=== PATIENT | male | born 1980 | race Two or more races ===

== ENCOUNTER 2021-07-11 19:49 | Inpatient (IN) | payer OTHER ==
[~2021-07-11] VITALS: Ht 165.1 cm; Wt 74.4 kg
--- NOTE | 2021-07-11 20:23 | NUR ---
patient back from CT
[2021-07-11 20:27] LABS: BASOPHILS % (AUTO) 0.3 % (0.0-2.0); EOSINOPHILS % (AUTO) 1.1 % (0.0-6.0); HEMATOCRIT 21 % (39-51); HEMOGLOBIN 7.3 g/dL (13.5-17.5); LYMPHOCYTES # (AUTO) 4.7 K/uL (0.8-4.8); MEAN CORPUSCULAR HGB CONC 34 g/dl (31.0-36.0); MEAN CORPUSCULAR VOLUME 90 fL (80-96); MONOCYTES # (AUTO) 1.2 K/uL (0.1-1.30); MONOCYTES % (AUTO) 6.2 % (2.0-12.0); NEUTROPHILS # (AUTO) 13.5 K/uL (1.8-8.9); NEUTROPHILS % (AUTO) 68.4 % (43.0-81.0); PLATELET COUNT (AUTO) 248 K/uL (150-450); RED BLOOD CELL COUNT(AUTO) 2.37 MIL/uL (4.5-6.0); WHITE BLOOD COUNT (AUTO) 19.7 K/uL (4.3-11.0)
[2021-07-11] MEDS ORDERED: MORPHINE SULFATE INJ 2 MG/ML DISP.SYRIN IV ONE (20:30)
[2021-07-11] MEDS ORDERED: ONDANSETRON HCL/PF 4 MG/2 ML VIAL IVP ONE (20:30)
[2021-07-11] MEDS ORDERED: IV NS 0.9% 1,000 ML BAG IV ONE (20:30)
[2021-07-11] MEDS ORDERED: ONDANSETRON HCL/PF 4 MG/2 ML VIAL ONE (20:32)
[2021-07-11 20:33] LABS: CALCIUM, SERUM 8.1 mg/dL (8.5-10.1); CREATININE 1.2 mg/dL (0.6-1.3); POTASSIUM 3.3 mmol/L (3.5-5.1)
[2021-07-11 20:38] LABS: ALBUMIN 3.1 g/dL (3.4-5.0); BILIRUBIN,TOTAL 0.1 mg/dL (0.2-1.0); TOTAL PROTEIN, SERUM 5.9 g/dL (6.4-8.2)
--- NOTE | 2021-07-11 20:46 | NUR ---
JAVID MONAEP FOR PANEL
[2021-07-11] MEDS ORDERED: PIPERACILLIN /TAZOBACTAM 3.375 G VIAL IV ONE (20:54)
[2021-07-11] MEDS ORDERED: PIPERACILLIN /TAZOBACTAM 3.375 G in IV D5W 50 ML IV ONE (21:00)
[2021-07-11] MEDS ORDERED: IV PREMIX D5 1/2NS + KCL 1,000 ML IV ONE ×2 (21:00→21:52)
--- NOTE | 2021-07-11 21:05 | NUR ---
PATIENT BIBSELF C/O DIARRHEA X 3 DAYS, SYNCOPE TODAY X COUPLE SECONDS AT HOME. -TRAUMA. PATIENT TAKEN TO ER BED 03. PATIENT IS A/O X 4 RR AND UNLABORED, NO SOB NOTED. PATIENT CONNECTED TO THORACIC SURGEON AND POX. WILL CONTINUE TO MONITOR.
[2021-07-11] MEDS ORDERED: HYDROMORPHONE INJ 2 MG/ML DISP.SYRIN IV PRN (21:30)
[2021-07-11] MEDS ORDERED: MAGNESIUM HYDROXIDE 30 ML UDC PO PRN (21:30)
[2021-07-11] MEDS ORDERED: ONDANSETRON HCL/PF 4 MG/2 ML VIAL IVP PRN (21:30)
[2021-07-11] MEDS ORDERED: MAG HYDROX/AL HYDROX/SIMETH 30 ML UDC PO PRN (21:30)
[2021-07-11] MEDS ORDERED: ZOLPIDEM TARTRATE 5 MG TABLET PO PRN (21:30)
[2021-07-11] MEDS ORDERED: ACETAMINOPHEN 325 MG TABLET PO PRN (21:30)
[2021-07-11] MEDS ORDERED: Z GUARD REMEDY 4 OZ OINT TP PRN (21:30)
[2021-07-11 23:00] VITALS: BP 127/68
--- NOTE | 2021-07-11 23:00 | NUR ---
RN RECEIVING TRANSFER NOTE PATIENT RECEIVED FROM ER ACCOMPANIED BY RNKAREEM. PATIENT TRANSPORTED BY GURNEY TO UNIT 3W. PATIENT WAS ABLE TO AMBULATE TO BED. A/OX4. NO S/S OF DISTRESS, BREATHING ON RM AIR W/O DIFFICULTY. RAC #20 INTACT AND PATENT W/ D5-1/2 NS + KCL 200ML/HR (REPLACING LOW POTASSIUM OF 3.3). VS WNL. PATIENT'S BELONGINGS WERE ACCOUNTED FOR AND SHEET LOGGED INTO CHART. PATIENT WAS ORIENTED TO THE UNIT, GIVEN CALL WILKS AND INSTRUCTED ON ITS USE. SAFETY MEASURES IN PLACE: BED AT LOWEST POSITION, LOCKED, RAILS UP X3, CALL WILKS WITHIN REACH. WILL CONTINUE TO MONITOR PATIENT.
--- NOTE | 2021-07-11 23:08 | NUR ---
PATIENT TRANSFERRED UNDER ACLS.
[2021-07-12] VITALS (7 sets, daily range): BP systolic 107–124; BP diastolic 57–72
[2021-07-12] MEDS ORDERED: LORAZEPAM INJ 2 MG/ML VIAL IV ONE
[2021-07-12] MEDS ORDERED: PIPERACILLIN /TAZOBACTAM 3.375 G VIAL IV ONE ×2 (00:30→05:03)
[2021-07-12] MEDS: PIPERACILLIN /TAZOBACTAM 3.375 G in IV D5W 50 ML IV SCH ×5 (00:37→23:57)
[2021-07-12] MEDS: IV NS 0.9% 1,000 ML IV PRN (05:08)
[2021-07-12 06:30] LABS: BASOPHILS % (AUTO) 0.2 % (0.0-2.0); EOSINOPHILS % (AUTO) 0.4 % (0.0-6.0); LYMPHOCYTES # (AUTO) 3.3 K/uL (0.8-4.8); MEAN CORPUSCULAR HGB CONC 35 g/dl (31.0-36.0); MEAN CORPUSCULAR VOLUME 90 fL (80-96); MONOCYTES % (AUTO) 8.9 % (2.0-12.0); NEUTROPHILS # (AUTO) 6.6 K/uL (1.8-8.9); NEUTROPHILS % (AUTO) 60.5 % (43.0-81.0); PLATELET COUNT (AUTO) 205 K/uL (150-450); WHITE BLOOD COUNT (AUTO) 10.9 K/uL (4.3-11.0)
[2021-07-12 06:31] LABS: ALBUMIN 2.8 g/dL (3.4-5.0); BILIRUBIN,TOTAL 0.2 mg/dL (0.2-1.0); CALCIUM, SERUM 7.6 mg/dL (8.5-10.1); CREATININE 1.2 mg/dL (0.6-1.3); MAGNESIUM 2.1 mg/dL (1.8-2.4); POTASSIUM 3.6 mmol/L (3.5-5.1); TOTAL PROTEIN, SERUM 5.3 g/dL (6.4-8.2)
[2021-07-12 06:39] LABS: RED BLOOD CELL COUNT(AUTO) 1.89 MIL/uL (4.5-6.0)
[2021-07-12 06:42] LABS: HEMATOCRIT 17 % (39-51)
--- NOTE | 2021-07-12 07:00 | NUR ---
RN NOTE LAB CONTACTED RN W/ CRITICAL VALUE OF H/H (6.0/17). THIS IS A DECREASE FROM THE INITIAL 7.3 HGB. DISCUSSED W/ CHARGE NURSE, SEBASTIAN. PATIENT IS ALREADY ADMITTED W/ A DIAGNOSIS OF GI BLEED WELL THE MD ORDERS ALREADY HAVE A PENDING PRBC TRANSFUSION PENDING, CHARGE NURSE STATED NO NEED TO NOTIFY MD. PATIENT STABLE; WILL CONTINUE TO MONITOR. Addendum: 07/12/21 at 0805 by BERNIE CALABRESE RN SPOKE W/ ANA FROM LAB.
--- NOTE | 2021-07-12 07:00 | NUR ---
RN NOTE PATIENT'S PARTNER, DASH, CALLED TO INQUIRE ABOUT PATIENT'S CURRENT HEALTH STATUS. PATIENT AND PARTNER INFORMATION VERIFIED BEFORE PROCEEDING TO DISCUSS PATIENT'S HEALTH INFORMATION. ALL QUESTIONS ANSWERED. PATIENT STABLE; WILL CONTINUE TO MONITOR PATIENT.
--- NOTE | 2021-07-12 07:30 | NUR ---
MS RN OPENING NOTES RECEIVED PATIENT AWAKE ON BED, PATIENT IS ALERT, A/O x 4. ROOM AIR TOLERATING WELL. NO S/S OF SOB NOTED, AND PATIENT IS NOT IN DISTRESS. NO PAIN AND DISCOMFORT AT THIS TIME. WITH IV ACCESS: RIGHT AC 20G WITH NS 90 ML/HR; CLEAN, DRY AND INTACT. INFUSING WELL. SAFETY MEASURES IN PLACE, BED LOWEST LOCK IN POSITION, SIDE RAILS UP BY 2. CALL LIGHT WITH IN REACH AND WILL CONTINUE TO MONITOR FOR HAJA.
--- NOTE | 2021-07-12 07:37 | NUR ---
RN CLOSING NOTE PATIENT AWAKE IN BED. A/OX4. NO S/S OF DISTRESS, BREATHING WELL ON RM AIR. RAC #20 W/ NS 90ML/HR. LAB NOTIFIED UNIT THAT PRBC TRANSFUSION IS READY AT SHIFT CHANGE; ENDORSED TO DAY SHIFT NURSE. SAFETY MEASURES IN PLACE: BED AT LOWEST POSITION, LOCKED, RAILS UP X3, CALL WILKS WITHIN REACH. REPORT GIVEN TO RUSH WHO ACKNOWLEDGED REPORT.
--- NOTE | 2021-07-12 08:30 | NUR ---
SEVEN MS NOTES PT STATED THAT HE WANTS TO SMOKE, REMINDED PT THAT HE HAS TO HAVE SOMEBODY WITH HIM AT THE SMOKING AREA, PT SAID HE DOESN'T CARE AND WENT STRAIGHT TO THE ELEVATOR RIGHT AWAY, ACCOMPANIED PT TO SMOKE AT THE SMOKING AREA AND WENT BACK TO HIS ROOM AFTER 5 MIN. Addendum: 07/12/21 at 1045 by RUSH WATT RN PLS DISREGARD ABOVE NOTES, INTENDED FOR ANOTHER PT.
[2021-07-12] MEDS ORDERED: FEXO-65 PO (08:57)
--- NOTE | 2021-07-12 13:02 | NUR ---
MS RN NOTES PATIENT RECEIVED 306 ML OF BLOOD TRANSFUSION. PATIENT TOLERATED IT WELL; NO SIGNS AND SYMPTOMS OF ADVERSE EFFECT FROM THE BLOOD. VITAL SIGNS ARE WITHIN NORMAL LIMITS.
[2021-07-12] MEDS: PANTOPRAZOLE 40 MG VIAL IV SCH ×3 (13:08→21:18)
--- NOTE | 2021-07-12 17:51 | NUR ---
RN MS NOTES REPEAT H/H DONE, RESULTS RELAYED TO DR. HARRIS, 7., PT IS ASYMPTOMATIC, NO ACTIVE BLEEDING, NO COMPLAINT OF PAIN, NO NAUSEA OR VOMITING, STATED THAT HE FEELS A BIT BETTER, NO NEW ORDER GIVEN, WILL REPEAT LABS IN AM, PT INFORMED, VERBALIZED UNDERSTANDING.
--- NOTE | 2021-07-12 18:38 | NUR ---
MS RN CLOSING NOTES PATIENT AWAKE ON BED, PATIENT IS ALERT, A/O x 4. ROOM AIR TOLERATING WELL. NO S/S OF SOB NOTED, AND PATIENT IS NOT IN DISTRESS. NO PAIN AND DISCOMFORT AT THIS TIME. WITH IV ACCESS: LEFT AC 20G WITH NS 90 ML/HR; CLEAN, DRY AND INTACT. INFUSING WELL. SAFETY MEASURES IN PLACE, BED LOWEST LOCK IN POSITION, SIDE RAILS UP BY 2. CALL LIGHT WITH IN REACH. WILL ENDORSE TO ONCOMING SHIFT FOR HAJA.
--- NOTE | 2021-07-12 20:00 | NUR ---
MS RN NOTES RECEIVED ON BED A/O X4,BREATHING REGULAR,NOT IN ANY FORM OF DISTRESS,PRESENT IVF INFUSING WELL ON LEFT AC SALINE LOCK VIA IV PUMP.SALINE LOCK RIGHT AC INTACT AND PATENT.DENIES PAIN DISCOMFORTS.NPO STATUS,CALL LIGHT IN REACH,NEEDS ANTICIPATED.
[2021-07-13] MEDS: IV NS 0.9% 1,000 ML IV PRN (00:19)
--- NOTE | 2021-07-13 01:00 | NUR ---
MS RN NOTES C/O HEADACHE,NPO STATUS.ICE PACK TO FOREHEAD PER PATIENT REQUEST.
--- NOTE | 2021-07-13 03:00 | NUR ---
MS RN NOTES ASLEEP.KEPT WARM AND COMFORTABLE.
[2021-07-13] MEDS: PIPERACILLIN /TAZOBACTAM 3.375 G in IV D5W 50 ML IV SCH ×4 (05:38→23:28)
[2021-07-13 05:59] LABS: CALCIUM, SERUM 8.1 mg/dL (8.5-10.1); CREATININE 1.2 mg/dL (0.6-1.3); MAGNESIUM 2.1 mg/dL (1.8-2.4); PHOSPHORUS 3.7 mg/dL (2.5-4.9); POTASSIUM 3.8 mmol/L (3.5-5.1)
--- NOTE | 2021-07-13 06:34 | NUR ---
MS RN NOTES ON BED SLEEPING,IV ABX INFUSED,NO ADVERSE SIDE EFFECTS NOTED,NO ACTIVE BLEEDING NOTED,NO N/V/D NOTED.STILL NEED STOOL FOR OCCULT BLOOD,KEPT NPO ORDERED.CALL LIGHT IN REACH,NEEDS ATTENDED.
[2021-07-13 06:37] LABS: BASOPHILS % (AUTO) 0.4 % (0.0-2.0); EOSINOPHILS % (AUTO) 0.8 % (0.0-6.0); HEMATOCRIT 21 % (39-51); HEMOGLOBIN 7.1 g/dL (13.5-17.5); LYMPHOCYTES # (AUTO) 3.6 K/uL (0.8-4.8); LYMPHOCYTES % (AUTO) 37.6 % (20.0-44.0); MEAN CORPUSCULAR HGB CONC 35 g/dl (31.0-36.0); MEAN CORPUSCULAR VOLUME 90 fL (80-96); MONOCYTES # (AUTO) 0.8 K/uL (0.1-1.30); MONOCYTES % (AUTO) 7.9 % (2.0-12.0); NEUTROPHILS # (AUTO) 5.2 K/uL (1.8-8.9); NEUTROPHILS % (AUTO) 53.3 % (43.0-81.0); PLATELET COUNT (AUTO) 225 K/uL (150-450); RED BLOOD CELL COUNT(AUTO) 2.29 MIL/uL (4.5-6.0); WHITE BLOOD COUNT (AUTO) 9.7 K/uL (4.3-11.0)
[2021-07-13 08:00] VITALS: BP 110/63
--- NOTE | 2021-07-13 08:10 | NUR ---
RN OPENING NOTE PATIENT RECEIVED IN BED, AO X 4, ABLE TO RESPONDS ALL STIMULI. IN NO ACUTE DISTRESS NOTED. RESPIRATORY EVEN AND UNLABORED ON ROOM. KEPT NPO FOR POSSIBLE EGD BY DR. MUJICA. SKIN IS WARM TO TOUCH, KEEP CLEAN/DRY, INTACT IV SITE. KEPT ELEVATED HOB FOR ENSURE AIRWAY AND ASPIRATION PRECAUTION, ALSO LOWEST POSITION OF THE BED, S/R UP X 3, ALL SAFETY PRECAUTION APPLIED. CALL LIGHT WITHIN REACH, WILL CONTINUE TO MONITOR.
--- NOTE | 2021-07-13 08:24 | NUR ---
PATIENT GOING PROCEDURE EGD, OBTAINED SIGN OF CONSENT.
[2021-07-13] MEDS ORDERED: ANESTHESIA TRAY IN PYXIS 1 EA TRAY MC ONE (09:26)
[2021-07-13 10:46] VITALS: BP 120/59
--- NOTE | 2021-07-13 10:54 | NUR ---
PATIENT CAME BACK FROM EGD IN STABLE CONDITION, REPORTED BY ROMARIO/OR. VITAL SIGN IS STABLE(DOCUMENTED AT IN INTERVENTION). WILL CONTINUE TO MONITOR.
--- NOTE | 2021-07-13 11:16 | NUR ---
PATIENT NOTICED SHAKING THE HIS BODY, DENIES DISTRESS. DR. HARRIS MADE AWARE AND NEW ORDER ATIVAN 1MG VIA IV Q4 HOURS.
[2021-07-13] MEDS ORDERED: LORAZEPAM INJ 2 MG/ML VIAL IV PRN (11:30)
[2021-07-13] MEDS: PANTOPRAZOLE 40 MG VIAL IV SCH ×2 (11:41→20:01)
[2021-07-13 11:45] VITALS: BP 136/77
[2021-07-13 16:00] VITALS: BP 120/60
--- NOTE | 2021-07-13 18:24 | NUR ---
RN CLOSE NOTE PATIENT IN BED, S/P EGD, IN NO ACUTE DISTRESS OBSERVED. RESPIRATION EVEN AND UNLABORED ON ROOM AIR. SKIN IS WARM TO TOUCH KEEP CLEAN//DRY, INTACT IV SITE. HAD BOWEL MOVEMENT AND COLLECTED OB STOOL. KEPT ELEVATED HOB FOR ENSURE AIRWAY AND ASPIRATION PRECAUTION. ALSO LOWEST POSITION OF THE BED FOR SAFETY. CALL LIGHT WITHIN REACH, WILL ENDORSE TO STRUCTURAL STEEL PAINTER.
[2021-07-13 18:33] LABS: OCCULT BLOOD STOOL POSITIVE (NEGATIVE)
--- NOTE | 2021-07-13 19:30 | NUR ---
MS RN NOTES RECEIVED ON BED SLEEPING AROUSABLE TO VERBAL STIMULI,BREATHING REGULAR,O2 SAT 98% ON ROOM AIR,VISITOR AT BEDSIDE,PRESENT IVF NS AT 90ML/HR RATE INFUSING WELL ON LEFT AC SALINE LOCK VIA IV PUMP.DENIES PAIN AT THE MOMENT,COMMENTED TOLERATED CLEAR LIQUID DIET,STOOL OB POSITIVE FOR OCCULT BLOOD.S/P EGD THIS MORNING,FIND OUT DUODENAL ULCER,CLIPS X2 WAS DONE AND BIOPSY ALSO WAS DONE.WILL CONTINUE TO MONITOR FOR ACTIVE BLEEDING,CALL LIGHT IN REACH,NEEDS ANTICIPATED.
[2021-07-13 20:00] VITALS: BP 129/55
[2021-07-14 05:59] LABS: CREATININE 1.2 mg/dL (0.6-1.3); MAGNESIUM 2.1 mg/dL (1.8-2.4); PHOSPHORUS 3.6 mg/dL (2.5-4.9); POTASSIUM 3.4 mmol/L (3.5-5.1)
[2021-07-14] MEDS: PIPERACILLIN /TAZOBACTAM 3.375 G in IV D5W 50 ML IV SCH ×4 (06:07→23:05)
[2021-07-14 06:28] LABS: BASOPHILS % (AUTO) 0.4 % (0.0-2.0); EOSINOPHILS % (AUTO) 0.6 % (0.0-6.0); LYMPHOCYTES # (AUTO) 1.7 K/uL (0.8-4.8); MEAN CORPUSCULAR HGB CONC 35 g/dl (31.0-36.0); MEAN CORPUSCULAR VOLUME 91 fL (80-96); MONOCYTES # (AUTO) 0.7 K/uL (0.1-1.30); MONOCYTES % (AUTO) 10.4 % (2.0-12.0); NEUTROPHILS # (AUTO) 4.1 K/uL (1.8-8.9); NEUTROPHILS % (AUTO) 62.6 % (43.0-81.0); PLATELET COUNT (AUTO) 251 K/uL (150-450); RED BLOOD CELL COUNT(AUTO) 2.09 MIL/uL (4.5-6.0); WHITE BLOOD COUNT (AUTO) 6.6 K/uL (4.3-11.0)
[2021-07-14 06:54] LABS: HEMOGLOBIN 6.6 g/dL (13.5-17.5)
[2021-07-14 06:55] LABS: HEMATOCRIT 19 % (39-51)
--- NOTE | 2021-07-14 07:29 | NUR ---
MS RN NOTES FAIRLY RESTED AT NIGHT,NO COMPLAINTS OF PAIN,AFEBRILE,IVF INFUSING WELL ON RIGHT AC SALINE LOCK.POSSIBLE D/C, TO BE CATEGORY MANAGER BY PARTNER IN THE AFTERNOON BETWEEN 3-4 PM.IN NO ACUTE DISTRESS.
--- NOTE | 2021-07-14 07:30 | NUR ---
RN OPENING NOTES RECEIVED PATIENT IN BED, A/O X4. ON RA WITH NO S/SX OF RESP DISTRESS. S/P EGD. RAC AND LAC G#18 INTACT AND PATENT. PATIENT ON NS @ 90ML/HR. SAFETY MEASURES IN PLACE. WILL CONTINUE PLAN OF CARE AND MONITOR FOR BLEEDING.
[2021-07-14 08:26] VITALS: BP 116/55
[2021-07-14] MEDS: PANTOPRAZOLE 40 MG VIAL IV SCH ×2 (09:15→20:48)
[2021-07-14] MEDS: IV NS 0.9% 1,000 ML IV PRN (09:37)
[2021-07-14] MEDS ORDERED: POTASSIUM CHLORIDE 20 MEQ POWDER PACKET PO SCH (10:00)
[2021-07-14 14:15] VITALS: BP 127/74
[2021-07-14 14:38] VITALS: BP 112/62
[2021-07-14 16:15] VITALS: BP 122/68
[2021-07-14 17:35] VITALS: BP 122/68
--- NOTE | 2021-07-14 19:00 | NUR ---
RN NOTES: RECIEVED AWAKE ON BED, VISITOR PRESENT AT BED SIDE, A/OX 4, PLEASANT MOOD, CONVERSANT, ABLE TO MAKE NEEDS KNOWN,HE VERBALIZED HE FEEL BETTER DURING THE ROUNDS, IV CANNULA ON RAC#18 WITH NS AT 90 CC/HR ON GOING, SPO2-99% ROOM AIR, NO SIGN OF SOB, NO PAIN OR DISCOMFORT, RECIEVED 1 UNIT PRBC IN THE MORNING COMPLETED AT AROUND 540PM. PER ENDORSEMENT NEEDS TO CHECK H/H POST TRANSFUSION, TO VERIFY WITH LAB.
--- NOTE | 2021-07-14 19:15 | NUR ---
RN CLOSING NOTES PATIENT IN BED AWAKE. ALL ORDERS FOLLOWED AND MEDICATIONS GIVEN TODAY. SAFETY MEASURES IN PLACE. ENDORSED REPORT TO THE ALIGNER NURSE FOR HAJA
[2021-07-14 20:00] VITALS: BP 122/66
--- NOTE | 2021-07-14 20:14 | NUR ---
RN NOTES: VERIFY WITH LAB, CN/RN NOTIFIED, FOR H/H 4 HOURS POST TRANSFUSION.
[2021-07-14 21:23] LABS: HEMOGLOBIN 8.3 g/dL (13.5-17.5)
--- NOTE | 2021-07-14 22:30 | NUR ---
RN NOTES; -LATEST H/H IS 8.06/09, CN/RN NOTIFIED, WILL INFORM DOCTOR IN THE MORNING.
[2021-07-15] MEDS: PIPERACILLIN /TAZOBACTAM 3.375 G in IV D5W 50 ML IV SCH ×2 (05:10→12:00)
[2021-07-15] MEDS: IV NS 0.9% 1,000 ML IV PRN (05:23)
[2021-07-15 06:43] LABS: BASOPHILS % (AUTO) 0.5 % (0.0-2.0); EOSINOPHILS % (AUTO) 1.9 % (0.0-6.0); HEMATOCRIT 24 % (39-51); HEMOGLOBIN 8.3 g/dL (13.5-17.5); LYMPHOCYTES # (AUTO) 2.4 K/uL (0.8-4.8); LYMPHOCYTES % (AUTO) 31.3 % (20.0-44.0); MEAN CORPUSCULAR HGB CONC 35 g/dl (31.0-36.0); MEAN CORPUSCULAR VOLUME 91 fL (80-96); MONOCYTES # (AUTO) 0.7 K/uL (0.1-1.30); MONOCYTES % (AUTO) 9.6 % (2.0-12.0); NEUTROPHILS # (AUTO) 4.3 K/uL (1.8-8.9); NEUTROPHILS % (AUTO) 56.7 % (43.0-81.0); PLATELET COUNT (AUTO) 290 K/uL (150-450); RED BLOOD CELL COUNT(AUTO) 2.61 MIL/uL (4.5-6.0); WHITE BLOOD COUNT (AUTO) 7.6 K/uL (4.3-11.0)
--- NOTE | 2021-07-15 06:59 | NUR ---
RN NOTES: SLEEP WELL IN THE NIGHT, NO PAIN OR DISCOMFORT, HE HAD BM BUT THIS TIME FORMED STOOL AND NOT VERY DARK ACCORDING TO THE PATIENT, HE FEELS MUCH BETTER, FOR POSSIBLE DISCHARGE IF LAB REMAIN WITHIN RANGE AND NO MORE BLEEDING. ENDORSED FOR CONTINUITY OF CARE.
--- NOTE | 2021-07-15 07:20 | NUR ---
RN OPENING NOTES RECEIVED PATIENT IN BED, A/OX 4. ON RA WITH NO S/SX OF DISTRESS NOTED. DENIES PAIN AT THIS TIME. RAC G#18 INTACT AND PATENT WITH NS RUNNING AT 90 ML/HR. NO SIGNS OF BLEEDING OR COMPLAINTS OF DARK STOOLS AT THIS TIME. SAFETY MEASURES IN PLACE. WILL CONTINUE PLAN OF CARE.
[2021-07-15 07:53] LABS: CALCIUM, SERUM 8.4 mg/dL (8.5-10.1); CREATININE 1.3 mg/dL (0.6-1.3); PHOSPHORUS 4.1 mg/dL (2.5-4.9); POTASSIUM 3.6 mmol/L (3.5-5.1)
[2021-07-15 08:00] VITALS: BP 103/59
[2021-07-15] MEDS: PANTOPRAZOLE 40 MG VIAL IV SCH (08:59)
[2021-07-15] MEDS ORDERED: PANT40TA2 PO (11:33)
--- NOTE | 2021-07-15 12:00 | NUR ---
RN NOTES PATIENT MEDICALLY CLEARED FOR DISCHARGE. REFUSED TO HAVE 1200 MEDICATION.
[2021-07-15] MEDS ORDERED: PROPOFOL 200 MG/20 ML VIAL IV ONE (13:21)
[2021-07-15] MEDS ORDERED: LIDOCAINE 2% 10 ML MDV IJ ONE (13:21)
--- NOTE | 2021-07-15 13:50 | NUR ---
POWER BUILDER DEVELOPER NOTES PATIENT IS MEDICALLY STABLE FOR DISCHARGE. VSS. DISCHARGE INSTRUCTIONS PROVIDED TO PATIENT. PATIENT ABLE TO VERBALIZE UNDERSTANDING. ALL BELONGINGS ACCOUNTED FOR AND DOCUMENTS SIGNED. EXIT CARE PACKET PROVIDED. ALL LINES AND ID BANDS REMOVED. PATIENT LEFT FACILITY ACCOMPANIED BY FRIEND IN PRIVATE CAR.
== END 2021-07-15 13:50 | disposition home or self-care (01) | DRG 871 ==
LOC: ER 19:51 → TELE 22:37 → MED 07-12 01:39
PROVIDERS: ADMIT Nurse Practitioner Acute Care; ATTEND Student in an Organized Health Care Education/Training Program
PROC: 30233N1 Transfusion of Nonautologous Red Blood Cells into Peripheral Vein, Percutaneous Approach (ICD-10-PCS; 2021-07-11)
PROC: 0W3P8ZZ Control Bleeding in Gastrointestinal Tract, Via Natural or Artificial Opening Endoscopic (ICD-10-PCS; principal; 2021-07-13)
PROC: 0DB68ZX Excision of Stomach, Via Natural or Artificial Opening Endoscopic, Diagnostic (ICD-10-PCS; 2021-07-13)
DX: A41.9 Sepsis, unspecified organism (principal); K26.4 Chronic or unspecified duodenal ulcer with hemorrhage; A09 Infectious gastroenteritis and colitis, unspecified; F10.239 Alcohol dependence with withdrawal, unspecified; D64.9 Anemia, unspecified; Y90.9 Presence of alcohol in blood, level not specified; K29.70 Gastritis, unspecified, without bleeding; Z20.822 Contact with and (suspected) exposure to COVID-19; Z91.048 Other nonmedicinal substance allergy status; R79.89 Other specified abnormal findings of blood chemistry; R25.1 Tremor, unspecified; Z79.1 Long term (current) use of non-steroidal anti-inflammatories (NSAID); W18.30XA Fall on same level, unspecified, initial encounter; Y92.009 Unspecified place in unspecified non-institutional (private) residence as the place of occurrence of the external cause
CPT/HCPCS: 36415; 71045-TC; 80048-TC; 80053-TC; 80076-TC; 82272-TC; 82962-TC; 83690-TC; 83735-TC; 84100-TC; 85025-TC; 85027-TC; 85730-TC; 86850-TC; 87081-TC; C9113; C9803; G0378; J2060; J2405; J2543; J2704; J3490; J7030; J7040; J7050; J7060; P9016